=== PATIENT | female | born 1950 | race Caucasian/White ===

== ENCOUNTER 2025-06-05 10:38 | Outpatient (CLI) | payer MEDICARE, MEDICAID ==
[~2025-06-05 10:38] MED LIST: iohexol 300mg/ml 100ml inj. ONE
--- NOTE | 2025-06-05 14:00 | RADIOLOGY REPORT ---
Exam: CT CT ABDOMEN W/WO IV CONTRAST History: ABD PAIN Comparison Study: None Technique: Multidetector spiral CT of the abdomen was performed from lung bases to pubic symphysis. Initial imaging was done without IV contrast, followed by post contrast images of the abdomen. Intravenous contrast was administered during this examination. Noncontrast and portal venous phase imaging was obtained. Axial, coronal and sagittal multiplanar reformats were performed by the technologist on a separate workstation. Radiation Dose : CT Dose: CTDI volume is 32.8 mGy. Dose-length product is 2490 mGy*cm Findings: Lung Bases: Cardiomegaly. Coronary artery calcifications. Vascular calcifications of the aorta. Liver: The liver is normal in size. No focal lesions. Normal hepatic vascular enhancement. Gallbladder and Biliary Tree: Gallbladder is collapsed or surgically absent. Spleen: Unremarkable Pancreas: The pancreas is normal in appearance without focal lesions or abnormal enhancement. Adrenal Glands: Unremarkable Kidneys: Kidneys demonstrate normal symmetric enhancement without focal lesions, calculi or hydronephrosis. Bowel: The stomach is grossly normal in appearance. Small bowel and colon are normal in caliber and distribution. The appendix is not visualized; however, no secondary findings of acute appendicitis identified. Ascites: Absent Lymphadenopathy: No mesenteric, retroperitoneal or periportal lymphadenopathy. Abdominal Wall and Mesentery: Unremarkable. Vasculature: The visualized abdominal aorta is normal in size and caliber. There is calcified atherosclerotic plaque involving the aorta and its branches. Abdominal and pelvic vessels demonstrate normal enhancement. Musculoskeletal: No aggressive focal bony lesions, acute fractures or dislocation. Multilevel degenerative changes of the spine. Chronic moderate to severe compression fractures of L5 and L2. IMPRESSION: No acute abdominal or pelvic finding. Radiation optimization: All CT scans at this facility use at least one of these dose optimization techniques: automated exposure control mA and/or kV adjustment per patient size (includes targeted exams where dose is matched to clinical indication) or iterative reconstruction.
== END 2025-06-05 23:59 | disposition home or self-care (01) ==
LOC: RAD 10:38
PROVIDERS: ATTEND Nurse Practitioner Family
DX: R10.31 Right lower quadrant pain (principal); I25.10 Atherosclerotic heart disease of native coronary artery without angina pectoris; I70.0 Atherosclerosis of aorta; I51.7 Cardiomegaly; M47.816 Spondylosis without myelopathy or radiculopathy, lumbar region; M48.56XA Collapsed vertebra, not elsewhere classified, lumbar region, initial encounter for fracture
CPT/HCPCS: 74170; Q9967